=== PATIENT | female | born 1970 | race Caucasian/White ===

== ENCOUNTER 2018-07-22 03:59 | Emergency (ER) | payer OTHER ==
[~2018-07-22] VITALS: Ht 180.3 cm; Wt 176.4 kg
[~2018-07-22 03:59] MED LIST: CLIN300C8 PO
[2018-07-22 04:12] VITALS: BP 147/64
[2018-07-22] MEDS ORDERED: HYDR-2163 PO (05:04)
[2018-07-22] MEDS ORDERED: MUPI15CR TP (05:06)
== END 2018-07-22 05:20 | disposition home or self-care (01) ==
LOC: ER 03:59
DX: L03.115 Cellulitis of right lower limb (principal); F17.200 Nicotine dependence, unspecified, uncomplicated
CPT/HCPCS: 99283